=== PATIENT | female | born 1955 | race Caucasian/White ===

== ENCOUNTER 2022-03-22 16:10 | Emergency (ER) | payer MEDICARE, OTHER ==
[~2022-03-22] VITALS: Ht 165.1 cm; Wt 90.9 kg
[2022-03-22 16:21] VITALS: BP 139/49
[2022-03-22] MEDS ORDERED: METOPROLOL SUCC50 MG PO (16:28)
[2022-03-22] MEDS ORDERED: GLIPIZIDE XL5 MG PO (16:29)
[2022-03-22] MEDS ORDERED: ACTOS15 MG PO (16:30)
[2022-03-22 16:31] VITALS: BP 126/47
[2022-03-22 16:44] LABS: HEMATOCRIT 37.9 % (37.0-47.0); HEMOGLOBIN 12.1 g/dl (12.0-16.0); IMMATURE GRANULOCYTES 0.1 % (0.0-5.0); MEAN CELL VOLUME 97.4 fL CALC (80.0-100.0); MEAN CORPUSCULAR HGB 31.1 pG CALC (26.0-32.0); MEAN CORPUSCULAR HGB CONC 31.9 g/dL CAL (32.0-36.0); NEUT# 5.18 thou/uL (2.00-7.15); RED BLOOD COUNT 3.89 mill/uL (4.20-5.60); RED CELL DISTRI WIDTH 12.6 % (11.5-15.5)
[2022-03-22 16:46] VITALS: BP 120/51
[2022-03-22 16:49] LABS: ALBUMIN 4.3 g/dL (3.2-5.0); BILIRUBIN, TOTAL 0.2 mg/dL (0.0-1.4); CREATININE 2.3 mg/dL (0.5-1.0); MAGNESIUM 2.6 mg/dL (1.6-2.3); POTASSIUM 5.6 mmol/l (3.5-5.1); TOTAL PROTEIN 7.9 g/dL (6.3-8.2)
[2022-03-22 17:01] VITALS: BP 113/48
[2022-03-22 17:16] VITALS: BP 119/43
[2022-03-22 17:33] VITALS: BP 147/53
== END 2022-03-22 18:00 | disposition home or self-care (01) ==
LOC: ED 16:10
DX: E87.5 Hyperkalemia (principal); I12.9 Hypertensive chronic kidney disease with stage 1 through stage 4 chronic kidney disease, or unspecified chronic kidney disease; E11.22 Type 2 diabetes mellitus with diabetic chronic kidney disease; N18.9 Chronic kidney disease, unspecified

== ENCOUNTER 2023-10-04 14:13 | Emergency (ER) | payer MEDICARE, OTHER ==
[~2023-10-04] VITALS: Ht 165.1 cm; Wt 85.7 kg
[~2023-10-04 14:13] MED LIST: ACTOS15 MG PO; GLIPIZIDE XL5 MG PO; METOPROLOL SUCC50 MG PO
[2023-10-04 14:24] VITALS: BP 138/59
[2023-10-04 14:31] VITALS: BP 122/58
[2023-10-04] MEDS ORDERED: CEPHALEXIN500 M1 PO (14:33)
== END 2023-10-04 14:43 | disposition home or self-care (01) ==
LOC: ED 14:13
PROC: 0HQGXZZ Repair Left Hand Skin, External Approach (ICD-10-PCS; principal; 2023-10-04)
DX: S61.211A Laceration without foreign body of left index finger without damage to nail, initial encounter (principal); I10 Essential (primary) hypertension; E11.9 Type 2 diabetes mellitus without complications; W26.0XXA Contact with knife, initial encounter; Y93.G1 Activity, food preparation and clean up; Z79.84 Long term (current) use of oral hypoglycemic drugs

== ENCOUNTER 2024-09-15 13:56 | Emergency (ER) | payer MEDICARE ==
[~2024-09-15] VITALS: Ht 162.6 cm; Wt 93.2 kg
[~2024-09-15 13:56] MED LIST changes: +ADLT ASA LOW81 MG PO; +ALLERGY RE50 MCG/ACT; +AMLODIPINE BESY10 MG PO; +ATORVASTATIN CA40 MG PO; +CEPHALEXIN500 M1 PO; +CYMBALTA60 MG PO; +FAMOTIDINE20 M1 PO; +FUROSEMIDE20 MG PO; +GLIPIZIDE10 M3 PO; +ISOSORB MONO30 MG PO; +JANUVIA100 MG PO; +LEVEMIR100 UNIT SC; +LOSARTAN POTASS50 MG PO; +PROTONIX40 M2 PO; +SINGULAIR10 MG PO; +TOPROL XL50 MG PO
[2024-09-15 14:06] VITALS: BP 151/67
[2024-09-15 14:30] VITALS: BP 145/70
[2024-09-15] MEDS ORDERED: LIDOCAINE HCL 1% (10MG/ML) 100 MG/10 ML MDV STI ONE (14:45)
[2024-09-15] MEDS ORDERED: BUPIVACAINE HCL PF 0.5 % 50 MG/10 ML SDV STI ONE (14:45)
[2024-09-15] MEDS ORDERED: KEFLEX500 MG PO (15:04)
[2024-09-15 15:25] VITALS: BP 145/70
== END 2024-09-15 15:41 | disposition home or self-care (01) ==
LOC: ED 13:56
DX: S91.114A Laceration without foreign body of right lesser toe(s) without damage to nail, initial encounter (principal); E11.40 Type 2 diabetes mellitus with diabetic neuropathy, unspecified; E11.22 Type 2 diabetes mellitus with diabetic chronic kidney disease; I12.9 Hypertensive chronic kidney disease with stage 1 through stage 4 chronic kidney disease, or unspecified chronic kidney disease; N18.9 Chronic kidney disease, unspecified; E78.5 Hyperlipidemia, unspecified; W27.2XXA Contact with scissors, initial encounter; Y93.E8 Activity, other personal hygiene; Y92.009 Unspecified place in unspecified non-institutional (private) residence as the place of occurrence of the external cause; Z79.4 Long term (current) use of insulin; Z86.73 Personal history of transient ischemic attack (TIA), and cerebral infarction without residual deficits

== ENCOUNTER 2024-09-17 20:47 | Emergency (ER) | payer MEDICARE ==
[~2024-09-17] VITALS: Ht 162.6 cm; Wt 89.0 kg
[~2024-09-17 20:47] MED LIST changes: +KEFLEX500 MG PO
[2024-09-17] MEDS ORDERED: MORPHINE SULFATE 4 MG/ML VIAL IM ONE (21:15)
[2024-09-17] MEDS ORDERED: ONDANSETRON 4 MG/TAB ODT SL ONE (21:15)
[2024-09-17 21:56] VITALS: BP 173/74
[2024-09-17] MEDS ORDERED: LIDODERM5 % EX (23:15)
[2024-09-17] MEDS ORDERED: HYDROCO/APAP1 TA9 PO (23:15)
[2024-09-18 00:03] VITALS: BP 173/74
[2024-09-18] MEDS ORDERED: LIDODERM5 % EX (08:15)
== END 2024-09-18 | disposition home or self-care (01) ==
LOC: ED 20:47
DX: S39.012A Strain of muscle, fascia and tendon of lower back, initial encounter (principal); S20.211A Contusion of right front wall of thorax, initial encounter; I10 Essential (primary) hypertension; E11.9 Type 2 diabetes mellitus without complications; E78.5 Hyperlipidemia, unspecified; W19.XXXA Unspecified fall, initial encounter; Z79.4 Long term (current) use of insulin

== ENCOUNTER 2024-09-20 10:18 | Emergency (ER) | payer MEDICARE ==
[2024-09-20] VITALS (12 sets, daily range): BP systolic 105–183; BP diastolic 55–84
[~2024-09-20] VITALS: Ht 162.6 cm; Wt 92.9 kg
[~2024-09-20 10:18] MED LIST changes: +HYDROCO/APAP1 TA9 PO; +LIDODERM5 % EX
[2024-09-20] MEDS ORDERED: HYDROcodone 5 MG/Acetaminophen 325 MG/COMBO PO ONE (11:10)
[2024-09-20] MEDS ORDERED: PAIN RELIEF325 MG PO (13:32)
== END 2024-09-20 13:47 | disposition home or self-care (01) ==
LOC: ED 10:18
DX: S20.211A Contusion of right front wall of thorax, initial encounter (principal); I10 Essential (primary) hypertension; E11.9 Type 2 diabetes mellitus without complications; E78.5 Hyperlipidemia, unspecified; Z79.4 Long term (current) use of insulin; W54.8XXA Other contact with dog, initial encounter; Y93.K1 Activity, walking an animal

== ENCOUNTER 2024-10-08 17:35 | Emergency (ER) | payer MEDICARE ==
[~2024-10-08] VITALS: Ht 162.6 cm; Wt 90.0 kg
[~2024-10-08 17:35] MED LIST changes: +PAIN RELIEF325 MG PO
[2024-10-08 20:16] VITALS: BP 201/95
[2024-10-08] MEDS ORDERED: DEXAMETHASONE 2 MG/TAB TAB PO ONE (20:45)
[2024-10-08] MEDS ORDERED: BENZONATATE 200 MG/CAP PO ONE (20:45)
[2024-10-08 20:58] VITALS: BP 201/86
[2024-10-08 21:01] VITALS: BP 150/90
[2024-10-08] MEDS ORDERED: BENZONATATE200 MG PO (22:05)
[2024-10-08] MEDS ORDERED: DECADRON4 MG PO (22:05)
[2024-10-08 22:30] VITALS: BP 145/87
== END 2024-10-08 22:30 | disposition home or self-care (01) ==
LOC: ED 17:35
DX: U07.1 COVID-19 (principal); R09.81 Nasal congestion; R05.9 Cough, unspecified; R51.9 Headache, unspecified; J02.9 Acute pharyngitis, unspecified; I12.9 Hypertensive chronic kidney disease with stage 1 through stage 4 chronic kidney disease, or unspecified chronic kidney disease; E11.22 Type 2 diabetes mellitus with diabetic chronic kidney disease; N18.4 Chronic kidney disease, stage 4 (severe); Z95.1 Presence of aortocoronary bypass graft; Z87.718 Personal history of other specified (corrected) congenital malformations of genitourinary system; Z87.891 Personal history of nicotine dependence